=== PATIENT | female | born 1985 | race Caucasian/White ===

== ENCOUNTER 2018-06-05 18:34 | Emergency (ER) | payer MEDICAID, SELFPAY ==
--- NOTE | 2018-06-05 19:22 | RAD ---
LEFT KNEE FOUR VIEW 06/05/18 HISTORY: Pain with ambulation. COMPARISON: None. FINDINGS: No acute fracture or malalignment. No significant joint effusion. Mild degenerative disease proximal tibiofibular joint. IMPRESSION: No acute abnormality. POS: [facility]
--- NOTE | 2018-06-05 20:12 | ULT ---
LEFT LOWER EXTREMITY VENOUS DOPPLER 06/05/18 HISTORY: Evaluate for deep venous thrombosis. COMPARISON: None. TECHNIQUE: Real time carmen scale, color doppler and spectral analysis of the left lower extremity venous system w as performed. Common femoral, femoral, proximal portions of the greater saphenous, and deep femoral v eins as well as the popliteal and posterior tibial veins were interrogated. There appears to be a web in the left femoral vein which may be sequela of a prior thrombosis. No acu te deep venous thrombosis. Normal flow, augmentation and compression. IMPRESSION: No evidence of acute deep venous thrombosis. POS: [facility]
== END 2018-06-05 20:25 | disposition home or self-care (01) ==
LOC: ERS 18:34
DX: S83.92XA Sprain of unspecified site of left knee, initial encounter (principal); F31.9 Bipolar disorder, unspecified; F41.9 Anxiety disorder, unspecified; F20.9 Schizophrenia, unspecified; Z79.01 Long term (current) use of anticoagulants; W19.XXXA Unspecified fall, initial encounter; X50.1XXA Overexertion from prolonged static or awkward postures, initial encounter

== ENCOUNTER 2019-04-02 18:43 | Emergency (ER) | payer MEDICAID, SELFPAY ==
--- NOTE | 2019-04-02 21:19 | RAD ---
XR Knee Lt 4 View STANDARD: 04/02/2019 8:52 PM CLINICAL INDICATION: Injury with pain COMPARISON: 06/05/2018 FINDINGS: Fracture:No fracture. Arthropathy:None of significance. Incidental findings:None of significance. IMPRESSION: 1. No acute osseous abnormality.
[2019-04-02] MEDS ORDERED: Ketorolac Tromethamine 30 MG/ML VIAL ONE (21:56)
--- NOTE | 2019-04-02 22:31 | ULT ---
EXAM: Left lower extremity venous duplex: Deep veins evaluated with color Doppler, spectral analysis, and compression. INDICATIONS: Left lower extremity pain and edema. FINDINGS: Deep veins interrogated include common femoral vein, femoral vein, popliteal vein, and post erior tibial vein. These veins show normal compression and blood flow. There is increased echogenicity seen within the lumen of the left femoral vein and profunda femoris vein. There is incidental note of fluid echogenicity about the region of the left knee which may be on the basis of joint effusion. IMPRESSION: No evidence of acute DVT. Possible residual from chronic clot within femoral vein/profund a femoris vein. Correlate with patient's history. Left knee joint fluid. Correlate with physical exam. Transcribed Date/Time: 04/02/2019 10:50 PM
== END 2019-04-02 22:57 | disposition home or self-care (01) ==
LOC: ERS 18:43
DX: M25.462 Effusion, left knee (principal); F41.9 Anxiety disorder, unspecified; F31.9 Bipolar disorder, unspecified
CPT/HCPCS: 96372; J1885